=== PATIENT | female | born 1960 | race Caucasian/White ===

== ENCOUNTER 2022-09-02 14:08 | Emergency (ER) | payer OTHER, SELFPAY ==
--- NOTE | 2022-09-02 14:12 | ED.UPPEXIN ---
HPI - Extremity Injury (Upper) General Chief Complaint: Extremity Injury, Upper Stated Complaint: Right Arm Injury Time Seen by Provider: 09/02/22 14:12 Source: patient and RN notes reviewed History of Present Illness HPI narrative: Patient is a 62-year-old female who presents to urgent care with complaints of right arm pain. Patient states it starts in the neck and radiates down the arm. States that she was lifting heavy laundry baskets a few days ago while trying to help out another workplace. 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 Patient is left-hand dominant. Patient has not taken anything [id number] for her pain but does take her tramadol occasionally. No other acute complaints. No acute distress noted. Patient aware of the plan of care. Some parts of this dictation were generated by voice recognition software and may contain typographical and/or grammatical inaccuracies. Related Data Home Medications Medication Instructions Recorded Confirmed apixaban 5 mg tablet (Eliquis) mg 09/02/22 ergocalciferol (vitamin D2) 1,250 09/02/22 mcg (50,000 unit) capsule furosemide 40 mg tablet mg 09/02/22 metoprolol succinate 50 mg mg PO 09/02/22 tablet,extended release 24 hr rimegepant 75 mg disintegrating mg 09/02/22 tablet (Nurtec ODT) ropinirole 1 mg tablet mg 09/02/22 semaglutide 1 mg/dose (4 mg/3 mL) mg subcut 09/02/22 subcutaneous pen injector (Ozempic) sertraline 100 mg tablet mg 09/02/22 spironolactone 25 mg tablet mg 09/02/22 tramadol 50 mg tablet mg 09/02/22 Allergies Allergy/AdvReac Type Severity Reaction Status Date / Time lisinopril Allergy Unknown Cough Verified 04/01/16 08:54 No Known Allergies Allergy Unknown Unverified 01/20/15 11:07 Review of Systems Review of Systems: CONSTITUTIONAL: Denies fever, chills, or sweats. EYES: Denies visual changes, redness, or discharge. ENT: Denies rhinorrhea, congestion, sore throat, or otalgia. CARDIOVASCULAR: Denies chest pain, palpitations, or edema. RESPIRATORY: Denies cough or dyspnea. GASTROINTESTINAL: Denies abdominal pain, nausea, vomiting, or diarrhea. GENITOURINARY: Denies dysuria or hematuria. SKIN: Denies rash or itching. MUSCULOSKELETAL: Reports of right arm pain radiating from the neck NEUROLOGIC: Denies headache, numbness, or weakness. All other systems reviewed are negative, except as documented in HPI. [facility] Family History Family History (Updated 04/01/16 @ 08:57 by DOCTOR UNKNOWN) Father Hypertension Family history of diabetes mellitus in first degree relative Diabetes mellitus Mother Hypertension Family history of diabetes mellitus in first degree relative Diabetes mellitus Depression Social History Social History Smoking status: Never smoker Alcohol intake: current Comments At the time of my signature, I reviewed and agree with the nursing past medical, surgical, social, and family history. There is no relevant family history pertinent to the patient complaint. Exam Narrative: GENERAL: This is a well-nourished, well-developed patient, in no apparent distress. HEAD: normocephalic, atraumatic. EYES: PERRL. Sclera clear/white. Vision is grossly intact. EARS: External ears normal NOSE: External nose normal with no obvious nasal discharge, nares without redness, no rhinorrhea. THROAT: Mucous membranes moist, posterior pharynx clear. NECK: Neck supple, non-tender without lymphadenopathy; mild right cervical tenderness SKIN: warm, intact with no suspicious lesions or rash, good texture and turgor. NEURO: awake, alert, and oriented to person, place and time. There were no obvious focal neurologic abnormalities. EXTREMITIES: Range of motion right upper extremity within normal limits due to pain. Positive strong right radial pulse with capillary refill less than 2 seconds. Course Course Level of Care: Express Care Visit Vital Signs Vital signs: V
[2022-09-02 14:16] VITALS: BP 114/96; PULSE 66; RESP 20; TEMP 36.4; O2SAT 99
== END 2022-09-02 14:57 | disposition home or self-care (01) ==
PROVIDERS: Emergency Provider Nurse Practitioner Family; PCP Nurse Practitioner Family
DX: M54.12 Radiculopathy, cervical region (principal); Z79.01 Long term (current) use of anticoagulants; Z79.891 Long term (current) use of opiate analgesic; X50.0XXA Overexertion from strenuous movement or load, initial encounter
CPT/HCPCS: 99203; G0463